=== PATIENT | female | born 1960 | race Caucasian/White ===

== ENCOUNTER 2022-01-21 08:55 | Emergency (ER) | payer OTHER ==
[2022-01-21] MEDS ORDERED: Ondansetron 4 MG/2 ML SDV IVPUSH ONE (10:22)
[2022-01-21] MEDS ORDERED: Lactated Ringers 1,000 ML IV ONE ×2 (10:22→11:39)
[2022-01-21] MEDS ORDERED: Lactated Ringers 1,000 ML IV SCH (10:30)
[2022-01-21 10:52] LABS: CORONAVIRUS COVID-19 NAA NEGATIVE (NEGATIVE)
[2022-01-21] MEDS ORDERED: Morphine 2 MG/ML SYRINGE IVPUSH ONE (10:57)
[2022-01-21 11:03] LABS: ESTIMATED GFR 34 mL/min (>60)
[2022-01-21] MEDS ORDERED: Lactated Ringers 500 ML IV ONE (13:37)
[2022-01-21] MEDS ORDERED: Acetaminophen 325 MG Tab PO STA (14:36)
[2022-01-21] MEDS ORDERED: Piperacillin/Tazobactam 4.5 GM in Sodium Chloride 0.9% 100 ML IV ONE (14:59)
[2022-01-21] MEDS ORDERED: Norepinephrine 4 MG in Dextrose 5% in Water 246 ML IV SCH ×2 (15:30)
[2022-01-21] MEDS ORDERED: Levofloxacin/Dextrose 5%-Water 750 MG in Premix Bag 1 BAG IV ONE (15:31)
== END 2022-01-21 18:03 ==
LOC: JD.ED 08:55
DX: A41.9 Sepsis, unspecified organism (principal); N13.2 Hydronephrosis with renal and ureteral calculous obstruction; Z20.822 Contact with and (suspected) exposure to COVID-19; Z91.018 Allergy to other foods
CPT/HCPCS: 0241U; 36415; 71045; 71250; 74176; 80053; 81001; 83605; 83690; 83880; 84484; 85025; 87040; 87086; 87154; 93005; 96361; 96365; 96366; 96368; 96375; 99285; A9270; J1956; J2270; J2405; J2543; J7060; J7120; 86922; 87077; 87186; 93010; 99284

== ENCOUNTER → 2022-07-31 | Day surgery (SDC) | payer OTHER ==
[~2022-07-31] MED LIST: Lactated Ringers 1,000 ML IV SCH; Lidocaine 1% 2 ML ONE; Lidocaine 1%/Sod Bicarbonate in NS 8.4% 1 ML Syringe IDERM PRN; Midazolam 1 MG/ML 2 ML SDV ONE; Propofol 200 MG/20 ML SDV ONE; Sodium Chloride 0.9% 10 ML Syringe FLUSH PRN; Sodium Chloride 0.9% 10 ML Syringe FLUSH SCH; fentaNYL 100 MCG/2 ML SDV ONE
== END | disposition home or self-care (01) ==
LOC: JD.SDS 08:51
PROVIDERS: ATTEND Surgery
DX: Z12.11 Encounter for screening for malignant neoplasm of colon (principal); K57.30 Diverticulosis of large intestine without perforation or abscess without bleeding; I10 Essential (primary) hypertension; E78.00 Pure hypercholesterolemia, unspecified; E66.01 Morbid (severe) obesity due to excess calories; E03.9 Hypothyroidism, unspecified; J45.909 Unspecified asthma, uncomplicated; Z86.010 Personal history of colon polyps; Z98.890 Other specified postprocedural states; Z79.899 Other long term (current) drug therapy; Z79.890 Hormone replacement therapy; Z68.41 Body mass index [BMI] 40.0-44.9, adult; Z86.16 Personal history of COVID-19
CPT/HCPCS: 45380; J2250; J2704; J3010; J7120; 00811; J3490

== ENCOUNTER 2024-03-16 12:30 | Emergency (ER) | payer OTHER ==
[2024-03-16] MEDS: Acetaminophen/HYDROcodone 325-5 MG Tab PO ONE (13:33)
== END 2024-03-16 14:25 | disposition home or self-care (01) ==
LOC: JD.ED 12:30
DX: S52.502A Unspecified fracture of the lower end of left radius, initial encounter for closed fracture (principal); S52.602A Unspecified fracture of lower end of left ulna, initial encounter for closed fracture; I10 Essential (primary) hypertension; J45.909 Unspecified asthma, uncomplicated; E03.9 Hypothyroidism, unspecified; Z86.16 Personal history of COVID-19; Z79.890 Hormone replacement therapy; Z79.899 Other long term (current) drug therapy; W01.0XXA Fall on same level from slipping, tripping and stumbling without subsequent striking against object, initial encounter
CPT/HCPCS: 29125; 99283; A9270